=== PATIENT | male | born 1975 | race Hispanic/Latino ===

== ENCOUNTER 2020-03-12 19:38 | Emergency (ER) | payer SELFPAY ==
[2020-03-12] MEDS ORDERED: IBUPROFEN 800 MG TAB ONE (21:02)
== END 2020-03-12 21:25 | disposition home or self-care (01) ==
LOC: EDH 19:38
DX: S43.121A Dislocation of right acromioclavicular joint, 100%-200% displacement, initial encounter (principal); E78.00 Pure hypercholesterolemia, unspecified; I10 Essential (primary) hypertension; Z88.0 Allergy status to penicillin; V29.88XA Motorcycle rider (driver) (passenger) injured in other specified transport accidents, initial encounter; Y93.89 Activity, other specified; Y92.89 Other specified places as the place of occurrence of the external cause; Y99.8 Other external cause status
CPT/HCPCS: 73030